=== PATIENT | female | born 1980 | race Caucasian/White ===

== ENCOUNTER → 2021-07-03 | Outpatient (CLI) | payer OTHER ==
[~2021-07-03] MED LIST: CODEINE-GUAIFE473 ML PO
== END ==
LOC: NM 06-18 10:00
DX: R11.0 Nausea (principal)
CPT/HCPCS: 78264; A9541

== ENCOUNTER 2021-09-02 21:50 | Emergency (ER) | payer OTHER | END 2021-09-03 01:50 | disposition home or self-care (01) | LOC: ER1 21:50 | DX: R09.89 Other specified symptoms and signs involving the circulatory and respiratory systems (principal); K21.9 Gastro-esophageal reflux disease without esophagitis | CPT/HCPCS: 99283; J7030 ==

== ENCOUNTER 2021-12-14 10:14 | Emergency (ER) | payer OTHER ==
[2021-12-14 10:53] LABS: HEMOGLOBIN 14.1 gm/dl (12.3-15.3); RED BLOOD COUNT 4.95 M/UL (4.00-5.10); WHITE BLOOD COUNT 6.5 K/UL (4.5-11.0)
[2021-12-14 11:44] LABS: BUN/CREATININE RATIO 15 (0-10)
== END 2021-12-14 12:30 | disposition home or self-care (01) ==
LOC: ER1 10:14
PROVIDERS: Emergency Medicine
DX: F41.9 Anxiety disorder, unspecified (principal); E87.6 Hypokalemia; K21.9 Gastro-esophageal reflux disease without esophagitis
CPT/HCPCS: 71045; 80053; 82550; 82553; 84484; 85025; 85379; 93005; 99284

== ENCOUNTER → 2022-01-29 | Outpatient (CLI) | payer OTHER | LOC: NM 01-28 09:00 | DX: R10.84 Generalized abdominal pain (principal); R13.10 Dysphagia, unspecified; R11.0 Nausea | CPT/HCPCS: 78227; A9537; J2805 ==